=== PATIENT | female | born 1965 | race Caucasian/White ===

== ENCOUNTER 2021-08-19 09:32 | Emergency (ER) | payer MEDICARE, OTHER, SELFPAY ==
--- NOTE | ~2021-08-19 | XR_ITS ---
EXAMINATION: XR HAND, LEFT CLINICAL INFORMATION: Left thumb pain after falling COMPARISON: None TECHNIQUE: PA, lateral, and oblique views of the left hand. FINDINGS: There is degenerative change at the first IP joint but no fracture, dislocation or destructive lesion. There is degenerative change at the first CMC as well. XR/XR hand LT min 3V IMPRESSION: No fracture seen.
[2021-08-19 09:37] VITALS: BP 140/79; PULSE 81; RESP 18; TEMP 36.9; O2SAT 98; BMI 55.5
--- NOTE | 2021-08-19 12:49 | ED_ITS ---
HPI - Extremity Problem General Chief complaint: Extremity Problem Stated complaint: l thumb inj Time Seen by Provider: 08/19/21 10:39 Source: patient Mode of arrival: ambulatory Limitations: no limitations History of Present Illness HPI Narrative: 56-year-old female presents to ED for left thumb pain. Patient states in the rain she was fixing a canopy and she slipped on the wet floor and she fell onto her outstretched hands. Patient denies hitting head or loss of consciousness. Patient states only pain is in left thumb patient denies any other trauma or pain in rest of body. Patient denies any trauma to the rest of the body. Related Data Previous Rx's Medication Instructions Recorded naproxen 500 mg tablet 500 mg PO BID PRN 10 Days #20 tab 08/19/21 Allergies Allergy/AdvReac Type Severity Reaction Status Date / Time No Known Allergies Allergy Verified 08/19/21 10:39 Review of Systems Review of Systems: Left thumb pain Yes all other systems are reviewed and are negative [facility] Social History Social History Advance Directives: No Advance Directives Information Provided: Yes Physical Exam Vital Signs: Vital Signs: Last Vital Signs Temp 98.4 F 08/19/21 09:37 Pulse 81 08/19/21 09:37 Resp 18 08/19/21 09:37 BP 140/79 H 08/19/21 09:37 Pulse Ox 98 08/19/21 09:37 BMI result Body Mass Index 55.5 Const: General: cooperative, healthy appearing, comfortable, no acute distress, well developed, alert, awake and Physically active Orientation/consciousness: patient oriented x3 HEENT: Head: Yes normal to inspection, Yes No palpable skull fracture present, Yes normocephalic, Yes atraumatic and No abrasion Ears: hearing grossly normal bilaterally, external ears normal, TM's normal bilaterally, TM normal on the right, TM normal on the left, EAC's normal, mastoids normal and no periauricular adenopathy Eyes: General: appearance normal, both eyes and all related structures Neck: Neck: Yes normal visual inspection, Yes full ROM, Yes no lymphade nopathy, Yes no meningeal signs, Yes trachea midline, Yes supple, No anterior neck swelling and No tender Chest: Chest palpation & inspection: normal inspection of the chest and normal palpation of entire chest wall Resp: Effort & Inspection: normal respiratory effort and able to speak in co mplete sentences Auscultation: clear to auscultation bilaterally Cardio: Jugular venous distension: no JVD Heart sounds: S1 normal heart sound present and S2 normal heart sound present GI: Inspection: Yes normal to inspection and No abdominal wall ecchymosis Palpation (GI): Soft to palpation, not firm, nontender, no guarding and not rigid : General: No CVA tenderness and Yes no CVA tenderness Back/Spine/Pelvis: Back: no CVA tenderness, No CVA tenderness and No back tenderness Skin: General skin exam: no rashes or lesions noted and elasticity normal Neuro: General: patient oriented x3, gait normal, no meningeal signs and CN's II-XI intact bilaterally Extrem: General: Yes normal to inspection and Yes full ROM Hand/finger images: 1. positive for ecchymosis. Negative for crepitus or deformity. Capillary refill is intact. Pain on range of motion. Rest of extremities normal motor/ neuro/vascular exam intact. Psych: Appearance: grossly normal, well kempt and not disheveled Course Course Course Narrative: Left hand x-ray. Reevaluation(s) Reevaluation #1: Left hand x-ray normal. Patient placed in thumb spica MDM - Extremity (Nontraumatic) MDM Narrative Medical decision making narrative: thumb sprain Discharge Plan Discharge Clinical Impression: Left thumb sprain Patient Disposition: Home, Self-Care Instructions: Finger Sprain (ED) Additional Instructions: please follow-up with your primary care provider. IF Symptoms do not improve you may need MRI. Return to the ED for swelling, worsening bluish black discoloration, coldness, hotness, redness, pus discharge, foul odor, numbness / tingling, or any other concerning symptoms. Prescriptions: New naproxen 500 mg tablet 500 mg PO BID PRN (Reason: pain) 10 Days Qty: 20 0RF Stand Alone Forms: Work/School Release Interventions: ED Discharge Assessment Last Done: 08/19/21 13:14 Discharge Date/Time: 08/19/21 13:15 Print Language: [place]
== END 2021-08-19 13:15 | disposition home or self-care (01) ==
PROVIDERS: Emergency Provider Emergency Medicine; PCP Internal Medicine
DX: S63.602A Unspecified sprain of left thumb, initial encounter (principal); W01.0XXA Fall on same level from slipping, tripping and stumbling without subsequent striking against object, initial encounter; Y93.89 Activity, other specified; Y92.017 Garden or yard in single-family (private) house as the place of occurrence of the external cause; Y99.9 Unspecified external cause status
CPT/HCPCS: 29130; 73130; 99283

== ENCOUNTER 2022-07-10 08:02 | Outpatient (REF) | payer OTHER, SELFPAY ==
--- NOTE | ~2022-07-10 | MM_ITS ---
EXAMINATION: MM SCREENING DIGITAL BREAST TOMOSYNTHESIS, BILATERAL CLINICAL INFORMATION: Screening. Asymptomatic. The lifetime risk of breast cancer based on the Tyrer-Cuzick Model is 4.9%. COMPARISON: Mammography: 04/16/2009. TECHNIQUE: Digital breast tomosynthesis is performed in both the craniocaudal and mediolateral oblique views along with computer-aided detection (CAD). Synthesized 2D images are generated from the tomosynthesis. FINDINGS: There are scattered areas of fibroglandular density (ACR BI-RADS breast composition Category b). About the upper outer aspect of the right breast, approximately 10 cm from nipple, there are 2 circumscribed densities present, one measuring approximately 4 mm in diameter and the other approximately 5 mm in diameter. No suspicious grouping of microcalcifications identified. Recommend spot compression views of the right breast with possible ultrasound to follow if these findings are persistent. No abnormal dominant mass or suspicious clustered microcalcifications identified within the left breast. MM/MM tomosynthesis screening BI IMPRESSION: Right breast densities for further evaluation as described. ASSESSMENT: BI-RADS 0: Incomplete - Need Additional Imaging Evaluation RECOMMENDATION: 1. Additional views of the right breast. 2. Targeted ultrasound if warranted after review of the additional views. 3. Radiology department staff will contact the patient for additional imaging.
--- NOTE | ~2022-07-10 | MM_ITS ---
EXAMINATION: BONE DENSITOMETRY CLINICAL INDICATION: Postmenopausal. COMPARISON: None (current study represents initial baseline exam). TECHNIQUE: Using a [employer] DXA System (software version: 13.1) manufactured by [employer], dual-energy x-ray absorptiometry was performed of the lumbar spine and left hip. The images are of good technical quality. Summary results are attached. FINDINGS: AP SPINE L1-L4: BMD 1.145 g/cm2, Z-score -0.4, T-score -0.3, normal. LEFT FEMUR, NECK: BMD 0.795 g/cm2, Z-score -1.3, T-score -1.7, osteopenia. LEFT FEMUR, TOTAL: BMD 0.947 g/cm2, Z-score -0.5, T-score -0.5, normal. IDENTIFIED RISK FACTORS: Low calcium intake, menopause, osteoporosis. HISTORY OF FRACTURE: None listed. MEDICATIONS: None listed. MM/XR DEXA axial skeleton IMPRESSION: 1. DIAGNOSIS: Osteopenia based on the lowest T-score value of -1.7 in the femoral neck applying World Health Organization criteria. 2. 10-YEAR FRACTURE RISK PREDICTION, FRAX: Major osteoporotic fracture (clinical spine, forearm, hip or shoulder) 6.4%. Hip fracture 0.5%. 3. Treatment Recommendations: NOF guidelines recommend consideration for treatment in postmenopausal women and men age 50 and older presenting with the following: -A hip or vertebral (clinical or morphometric) fracture. -T-score less than or equal to -2.5 at the femoral neck or spine after appropriate evaluation to exclude secondary causes. -Low bone mass at the hip or spine and a 10-year fracture probability by FRAX of greater than or equal to 3% for hip fracture or greater than or equal to 20% for major osteoporotic fracture based on the [place] adapted WHO algorithm. 4. Other Recommendations: All treatment decisions require clinical judgment and consideration of individual patient factors, including patient preferences, comorbidities, previous drug use, risk factors not captured in the FRAX model (e.g. frailty, falls, vitamin D deficiency, increased bone turnover, interval significant decline in bone density) and possible under or overestimation of fracture risk by FRAX. Additional medical evaluation for secondary cause of low bone mineral density may be appropriate. FUTURE SCAN RECOMMENDATION: People with diagnosed cases of osteoporosis or at high risk for fracture should have regular bone mineral density tests. For patients eligible for Medicare, routine testing is allowed once every 2 years. The testing frequency can be increased to one year for patients who have rapidly progressing disease, those who are receiving or discontinuing medical therapy to restore bone mass, or have additional risk factors.
== END 2022-07-10 08:03 | disposition home or self-care (01) ==
LOC: HO.MAMMO 08:02
PROVIDERS: PCP Internal Medicine; Visit Provider Internal Medicine
DX: Z12.31 Encounter for screening mammogram for malignant neoplasm of breast (principal); Z13.820 Encounter for screening for osteoporosis; Z78.0 Asymptomatic menopausal state
CPT/HCPCS: 77063; 77067; 77080

== ENCOUNTER 2022-07-17 10:21 | Outpatient (REF) | payer OTHER, SELFPAY ==
--- NOTE | ~2022-07-17 | MM_ITS ---
EXAMINATION: MM DIAGNOSTIC DIGITAL BREAST TOMOSYNTHESIS, RIGHT BREAST US TARGETED RIGHT BREAST ULTRASOUND CLINICAL INFORMATION: Density deep upper outer aspect right breast. COMPARISON: Mammography: 07/10/2022 and 04/16/2009. TECHNIQUE: Digital breast tomosynthesis is performed. 2D images are generated from the tomosynthesis. The following views are obtained: Spot compression views of the right breast in craniocaudal and mediolateral oblique projections. Targeted right breast ultrasound. FINDINGS: There are scattered areas of fibroglandular density (ACR BI-RADS breast composition Category b). Additional mammography films demonstrate a faint circumscribed density about the deep superior aspect of the right breast measuring approximately 6 x 5 mm in size lying approximately 10 cm from the nipple. This appears to have a fatty cleft with the appearance of an intramammary lymph node. No second nodular density is appreciated. Targeted right breast ultrasound at the 12 o'clock position, demonstrated a hypoechoic well-circumscribed lesion with some internal echoes measuring approximately 5 x 3 x 5 mm in size with no internal vascularity and which is wider than it is tall with increased through-sound transmission with the appearance of a complex cyst. I cannot be sure that the ultrasound finding corresponds to the mammographic finding. An 6-month followup right breast mammogram and ultrasound is recommended. Results are discussed with the patient at time of visit. MM/MM tomosynthesis added views R IMPRESSION: Right breast density and complex cystic structure for 6-month followup study. ASSESSMENT: BI-RADS 3: Probably benign. RECOMMENDATION: Diagnostic mammography in 6 months. This patient's information was entered into a reminder system with a target due date for their next mammogram.
== END 2022-07-17 10:22 | disposition home or self-care (01) ==
LOC: HO.MAMMO 10:21
PROVIDERS: Visit Provider Internal Medicine
DX: R92.2 Inconclusive mammogram (principal)
CPT/HCPCS: 76642; 77061; 77065